=== PATIENT | female | born 1940 | race Two or more races ===

== ENCOUNTER 2017-09-19 09:20 | Inpatient (IN) | payer OTHER, MEDICAID ==
[~2017-09-19] VITALS: Ht 157.5 cm; Wt 81.6 kg
[2017-09-19 09:50] LABS: Basophils # (auto) 0 uL; Basophils % (auto) 0.4 % (0.0-2.0); Eosinophils # (auto) 0 uL; Eosinophils % (auto) 0.1 % (0.0-7.0); Hematocrit 44.1 % (36.0-46.0); Hemoglobin 14.6 g/dL (12.2-16.2); Lymphocytes # (auto) 0.6 uL; Lymphocytes % (auto) 5.3 % (10.0-50.0); Mean Corpuscular Hemoglobin 30.1 pg (28.0-32.0); Mean Corpuscular Hgb Conc. 33.1 g/dL (32.0-36.0); Mean Corpuscular Volume 90.8 fL (80.0-100.0); Monocytes # (auto) 0.9 uL; Monocytes % (auto) 7.7 % (0.0-12.0); Neutrophils # (auto) 10.1 uL; Neutrophils % (auto) 86.5 % (37.0-80.0); Platelet Count (auto) 254 10^3/uL (140-450); Red Blood Cells 4.85 10^6/uL (4.0-5.20); White Blood Cell 11.7 10^3/uL (4.4-10.8)
[2017-09-19 10:07] LABS: Albumin 3.1 g/dL (3.4-5.0); Magnesium 2.2 mg/dL (1.6-2.6)
[2017-09-19] MEDS ORDERED: SODIUM CHLORIDE 0.9% 1,000 ML IV ONE (10:14)
[2017-09-19 10:15] LABS: Bilirubin, Total 0.4 mg/dL (0.2-1.0); Total Protein 7.6 g/dL (6.4-8.2)
[2017-09-19] MEDS ORDERED: InsuLIN REG 1unit/0.01ml Soln (100units/ml) IV ONE (10:15)
[2017-09-19 11:01] LABS: Urine Bacteria FEW /hpf (None Seen); Urine Blood 2+ /uL (Negative); Urine Specific Gravity 1.014 (1.001-1.035); Urine WBC 1348 /hpf (0 - 5); Urine WBC Clumps PRESENT /hpf (None Seen)
[2017-09-19] MEDS ORDERED: ENOXAPARIN SOD 80 MG/0.8ML SYRINGE SC ONE (11:15)
[2017-09-19 12:58] LABS: INR 1.16 (0.9-1.15); Partial Thromboplastin Time 27.8 sec (22.64-33.71); Prothrombin Time 12.7 sec (9.37-12.3)
[2017-09-19] MEDS ORDERED: DEXTROSE (50%) 50ML SYRG IV PRN (13:00)
[2017-09-19] MEDS ORDERED: DOCUSATE SOD 100 MG CAP PO PRN (13:15)
[2017-09-19] MEDS ORDERED: ONDANSETRON HCL 4 MG/2 ML VIAL IV PRN (13:15)
[2017-09-19] MEDS ORDERED: cefTRIAXone 1GM/10ml IVPUSH 10 ML IV ONE (13:15)
[2017-09-19] MEDS ORDERED: IBUPROFEN 600 MG TAB PO PRN (13:15)
[2017-09-19] MEDS ORDERED: ASPirin-EC 81 mg tab PO ONE (13:15)
[2017-09-19] MEDS ORDERED: ACETAMINOPHEN 325 MG TAB PO PRN (13:15)
[2017-09-19] MEDS: SODIUM CHLOR 0.9% PF (SALINE LOCK) 10ML VIAL IV SCH ×2 (13:21→21:58)
[2017-09-19] MEDS: ENOXAPARIN SOD 30 MG/0.3 ML SYRINGE SC SCH (13:45)
[2017-09-19] MEDS: FAMOTIDINE 20 MG TAB PO SCH (14:17)
[2017-09-19] MEDS: GABAPENTIN 300 MG CAP PO SCH ×2 (14:17→21:58)
[2017-09-19] MEDS: HYDROcodone-ACET 5/325MG TAB PO PRN ×2 (15:58→23:16)
[2017-09-19] MEDS: InsuLIN REG 1unit/0.01ml Soln (100units/ml) SC SCH ×2 (16:54→22:23)
[2017-09-19] MEDS: NovoloG Insulin 1unit/0.01ml Soln (100units/ml) SC SCH (16:54)
[2017-09-19] MEDS: ACCU-CHEK COMFORT CURVE STRIP VI SCH ×2 (16:54→22:24)
[2017-09-19] MEDS: Boost Glucose Control 8 Ounces PO SCH (18:35)
[2017-09-19] MEDS: MORPHINE SULFATE 4 MG/ML SYR/VIAL IV PRN (18:40)
[2017-09-19 20:00] VITALS: BP 106/62
[2017-09-19 21:19] VITALS: BP 106/62
[2017-09-19] MEDS: ATORVASTATIN 20 MG TAB PO SCH (21:58)
[2017-09-19] MEDS ORDERED: FAMOTIDINE 20 MG TAB PO SCH (22:00)
[2017-09-19] MEDS: INSULIN LANTUS (GLARGINE) 1 /0.01ml (100units/ml) SC SCH (22:23)
[2017-09-20] VITALS (7 sets, daily range): BP systolic 108–126; BP diastolic 60–80
[2017-09-20] MEDS: TEMAZEPAM 15 MG CAP PO PRN ×2 (01:39→21:34)
[2017-09-20] MEDS ORDERED: VANCOMYCIN PER PHARMACY 0 MG IV SCH (02:15)
[2017-09-20] MEDS ORDERED: VANCOMYCIN 1GM/250ML 250 ML IV ONE ×2 (02:30→02:39)
[2017-09-20] MEDS: GABAPENTIN 300 MG CAP PO SCH ×3 (05:53→21:32)
[2017-09-20] MEDS: SODIUM CHLOR 0.9% PF (SALINE LOCK) 10ML VIAL IV SCH ×3 (05:53→21:31)
[2017-09-20] MEDS: ACCU-CHEK COMFORT CURVE STRIP VI SCH ×4 (05:54→21:32)
[2017-09-20] MEDS: InsuLIN REG 1unit/0.01ml Soln (100units/ml) SC SCH ×4 (06:06→21:33)
[2017-09-20] MEDS: NovoloG Insulin 1unit/0.01ml Soln (100units/ml) SC SCH ×3 (06:06→16:53)
[2017-09-20 06:41] LABS: Basophils # (auto) 0 uL; Basophils % (auto) 0.4 % (0.0-2.0); Eosinophils # (auto) 0.1 uL; Hematocrit 42.5 % (36.0-46.0); Hemoglobin 14.1 g/dL (12.2-16.2); Lymphocytes # (auto) 1.8 uL; Lymphocytes % (auto) 18.9 % (10.0-50.0); Mean Corpuscular Hemoglobin 30.6 pg (28.0-32.0); Mean Corpuscular Hgb Conc. 33.1 g/dL (32.0-36.0); Mean Corpuscular Volume 92.4 fL (80.0-100.0); Monocytes # (auto) 1.1 uL; Monocytes % (auto) 11.6 % (0.0-12.0); Neutrophils # (auto) 6.6 uL; Neutrophils % (auto) 68.1 % (37.0-80.0); Platelet Count (auto) 217 10^3/uL (140-450); Red Blood Cells 4.59 10^6/uL (4.0-5.20); Red Cell Distribution Width 14.3 % (11.8-14.3); White Blood Cell 9.7 10^3/uL (4.4-10.8)
[2017-09-20 07:09] LABS: Albumin 2.6 g/dL (3.4-5.0); BUN/Creatinine Ratio 14.6; Bilirubin, Total 0.2 mg/dL (0.2-1.0); Calcium 8.6 mg/dL (8.5-10.1); Potassium 3.9 mmol/L (3.5-5.1); Total Protein 7.3 g/dL (6.4-8.2)
[2017-09-20] MEDS: Boost Glucose Control 8 Ounces PO SCH ×3 (08:58→18:25)
[2017-09-20] MEDS: cefTRIAXone 1GM/10ml IVPUSH 10 ML IV SCH (09:59)
[2017-09-20] MEDS: ENOXAPARIN SOD 30 MG/0.3 ML SYRINGE SC SCH (10:00)
[2017-09-20] MEDS: ASPirin-EC 81 mg tab PO SCH (10:00)
[2017-09-20] MEDS: VICTOZA 1.8 MG SC SCH (10:00)
[2017-09-20] MEDS ORDERED: ENOXAPARIN SOD 40 MG/0.4 ML SYRINGE SC SCH (10:00)
[2017-09-20] MEDS: FAMOTIDINE 20 MG TAB PO SCH (10:00)
[2017-09-20] MEDS: MULTIPLE VITAMIN TAB PO SCH (10:03)
[2017-09-20] MEDS ORDERED: INSLANTI SC (10:57)
[2017-09-20] MEDS ORDERED: OXYB5TAB62 PO (10:57)
[2017-09-20] MEDS ORDERED: CLOP75TA41 PO (10:57)
[2017-09-20] MEDS ORDERED: IBUP800T24 PO (10:57)
[2017-09-20] MEDS ORDERED: LIRA18IN2 SUBCUT (10:59)
[2017-09-20] MEDS ORDERED: GABA300C10 PO (10:59)
[2017-09-20] MEDS ORDERED: CHOL20007 PO (10:59)
[2017-09-20] MEDS ORDERED: ISOS60TA24 PO (10:59)
[2017-09-20] MEDS ORDERED: POTA-167 PO (10:59)
[2017-09-20] MEDS ORDERED: FENO1TAB42 PO (10:59)
[2017-09-20 11:32] LABS: Folate (Folic Acid) 12.53 ng/mL (5.38-24)
[2017-09-20] MEDS ORDERED: LEVOFLOXACIN 500MG 100 ML IV SCH ×2 (16:30)
[2017-09-20] MEDS: ATORVASTATIN 20 MG TAB PO SCH (21:31)
[2017-09-20] MEDS: INSULIN LANTUS (GLARGINE) 1 /0.01ml (100units/ml) SC SCH (21:32)
[2017-09-21 05:30] VITALS: BP 108/53
[2017-09-21] MEDS: NovoloG Insulin 1unit/0.01ml Soln (100units/ml) SC SCH ×3 (06:26→17:00)
[2017-09-21] MEDS: ACCU-CHEK COMFORT CURVE STRIP VI SCH ×3 (06:26→17:27)
[2017-09-21] MEDS: InsuLIN REG 1unit/0.01ml Soln (100units/ml) SC SCH ×3 (06:26→17:00)
[2017-09-21] MEDS: SODIUM CHLOR 0.9% PF (SALINE LOCK) 10ML VIAL IV SCH ×2 (06:26→17:16)
[2017-09-21 07:36] LABS: Basophils # (auto) 0 uL; Basophils % (auto) 0.5 % (0.0-2.0); Eosinophils # (auto) 0.1 uL; Eosinophils % (auto) 1.2 % (0.0-7.0); Hematocrit 36.8 % (36.0-46.0); Hemoglobin 12.5 g/dL (12.2-16.2); Lymphocytes # (auto) 1.6 uL; Lymphocytes % (auto) 22.5 % (10.0-50.0); Mean Corpuscular Hemoglobin 30.6 pg (28.0-32.0); Mean Corpuscular Hgb Conc. 33.9 g/dL (32.0-36.0); Monocytes # (auto) 0.8 uL; Monocytes % (auto) 11.4 % (0.0-12.0); Neutrophils # (auto) 4.7 uL; Neutrophils % (auto) 64.4 % (37.0-80.0); Platelet Count (auto) 225 10^3/uL (140-450); Red Blood Cells 4.09 10^6/uL (4.0-5.20); White Blood Cell 7.3 10^3/uL (4.4-10.8)
[2017-09-21 07:50] LABS: Albumin 2.3 g/dL (3.4-5.0); BUN/Creatinine Ratio 17.9; Bilirubin, Total 0.2 mg/dL (0.2-1.0); Calcium 8.4 mg/dL (8.5-10.1); Potassium 3.8 mmol/L (3.5-5.1); Total Protein 6.7 g/dL (6.4-8.2)
[2017-09-21] MEDS: Boost Glucose Control 8 Ounces PO SCH ×3 (08:00→18:00)
[2017-09-21 09:08] VITALS: BP 109/64
[2017-09-21] MEDS: cefTRIAXone 1GM/10ml IVPUSH 10 ML IV SCH (09:12)
[2017-09-21] MEDS: MORPHINE SULFATE 4 MG/ML SYR/VIAL IV PRN ×2 (09:12→17:06)
[2017-09-21] MEDS: VICTOZA 1.8 MG SC SCH (10:00)
[2017-09-21] MEDS ORDERED: VANCOMYCIN 1,250 MG in D5W 5% 250 ML IV SCH (10:00)
[2017-09-21] MEDS: ASPirin-EC 81 mg tab PO SCH (10:46)
[2017-09-21] MEDS: MULTIPLE VITAMIN TAB PO SCH (10:46)
[2017-09-21] MEDS: GABAPENTIN 300 MG CAP PO SCH (10:46)
[2017-09-21] MEDS: FAMOTIDINE 20 MG TAB PO SCH (10:46)
[2017-09-21] MEDS: ENOXAPARIN SOD 30 MG/0.3 ML SYRINGE SC SCH (10:47)
[2017-09-21] MEDS ORDERED: LEVOFLOXACIN 250MG 50 ML IV SCH (11:00)
[2017-09-21 15:39] VITALS: BP 109/64
== END 2017-09-21 20:17 | DRG 871 ==
LOC: ER 09:20 → EDBD 09:20 → OVERFLOW 09:21 → CENTRAL 18:03
PROVIDERS: ADMIT Internal Medicine; ATTEND Internal Medicine
DX: A41.51 Sepsis due to Escherichia coli [E. coli] (principal); G92 Toxic encephalopathy; E44.0 Moderate protein-calorie malnutrition; E10.21 Type 1 diabetes mellitus with diabetic nephropathy; M62.82 Rhabdomyolysis; N39.0 Urinary tract infection, site not specified; E86.0 Dehydration; W18.39XA Other fall on same level, initial encounter; F02.80 Dementia in other diseases classified elsewhere, unspecified severity, without behavioral disturbance, psychotic disturbance, mood disturbance, and anxiety; G30.9 Alzheimer's disease, unspecified; G89.4 Chronic pain syndrome; I12.9 Hypertensive chronic kidney disease with stage 1 through stage 4 chronic kidney disease, or unspecified chronic kidney disease; N18.3 Chronic kidney disease, stage 3 (moderate); R29.6 Repeated falls; R26.89 Other abnormalities of gait and mobility; R74.8 Abnormal levels of other serum enzymes; K59.00 Constipation, unspecified; G96.8 Other specified disorders of central nervous system; M48.061 Spinal stenosis, lumbar region without neurogenic claudication; M51.26 Other intervertebral disc displacement, lumbar region; E10.22 Type 1 diabetes mellitus with diabetic chronic kidney disease; G40.909 Epilepsy, unspecified, not intractable, without status epilepticus; I70.0 Atherosclerosis of aorta; Y93.89 Activity, other specified; Z68.32 Body mass index [BMI] 32.0-32.9, adult; Y92.091 Bathroom in other non-institutional residence as the place of occurrence of the external cause; Z79.4 Long term (current) use of insulin; Y99.8 Other external cause status
CPT/HCPCS: 36415; 70450; 70551; 71045; 72128; 72131; 73502; 80053; 81001; 82550; 82607; 82746; 82962; 83036; 83605; 83735; 83880; 84443; 84484; 85025; 85610; 85730; 87040; 87077; 87086; 87088; 87186; 92610; 93005; 93306; 93886; 95819; 96372; 96374; 96375; 97163; 99291; J1815; J1956; J7060

== ENCOUNTER 2018-01-25 13:51 | Emergency (ER) | payer OTHER, MEDICAID ==
[~2018-01-25] VITALS: Ht 152.4 cm; Wt 71.2 kg
[~2018-01-25 13:51] MED LIST: CHOL20007 PO; CLOP75TA41 PO; FENO1TAB42 PO; GABA300C10 PO; IBUP800T24 PO; INSLANTI SC; ISOS60TA24 PO; LIRA18IN2 SUBCUT; OXYB5TAB62 PO; POTA-167 PO
[2018-01-25 14:05] VITALS: BP 115/52
[2018-01-25 16:31] LABS: Basophils # (auto) 0 uL; Basophils % (auto) 0.5 % (0.0-2.0); Eosinophils # (auto) 0.2 uL; Hematocrit 41.3 % (36.0-46.0); Lymphocytes # (auto) 2.4 uL; Lymphocytes % (auto) 36.9 % (10.0-50.0); Mean Corpuscular Hemoglobin 30.9 pg (28.0-32.0); Monocytes # (auto) 0.5 uL; Monocytes % (auto) 6.9 % (0.0-12.0); Neutrophils # (auto) 3.5 uL; Neutrophils % (auto) 52.7 % (37.0-80.0); Nucleated Red Blood Cells % 0.1 %; Platelet Count (auto) 258 10^3/uL (140-450); Red Blood Cells 4.54 10^6/uL (4.0-5.20); Red Cell Distribution Width 14.1 % (11.8-14.3); White Blood Cell 6.5 10^3/uL (4.4-10.8)
[2018-01-25 16:46] LABS: Anion Gap 8 (5-15); BUN/Creatinine Ratio 13.2; Blood Urea Nitrogen 15 mg/dL (7-18); Calcium 9.1 mg/dL (8.5-10.1); Carbon Dioxide 24 mmol/L (21-32); Chloride 103 mmol/L (98-107); GFR African American 60 mL/min; GFR Non-African American 49 mL/min; Glucose 182 mg/dL (74-106); Potassium 3.9 mmol/L (3.5-5.1); Sodium 135 mmol/L (136-145)
[2018-01-25 16:49] LABS: INR 1.05 (0.9-1.15); Partial Thromboplastin Time 29.9 sec (23.78-33.04); Prothrombin Time 11.2 sec (9.27-12.13)
== END 2018-01-25 17:33 | disposition home or self-care (01) ==
LOC: ER 13:51
DX: M79.89 Other specified soft tissue disorders (principal); R53.1 Weakness; E11.9 Type 2 diabetes mellitus without complications; K21.9 Gastro-esophageal reflux disease without esophagitis; I10 Essential (primary) hypertension; E78.5 Hyperlipidemia, unspecified; Z87.442 Personal history of urinary calculi; Z90.710 Acquired absence of both cervix and uterus; Z88.1 Allergy status to other antibiotic agents; Z88.8 Allergy status to other drugs, medicaments and biological substances; Z79.899 Other long term (current) drug therapy; Z90.49 Acquired absence of other specified parts of digestive tract
CPT/HCPCS: 36415; 80048; 84484; 85025; 85610; 85730

== ENCOUNTER 2018-02-24 12:38 | Inpatient (IN) | payer OTHER, MEDICAID ==
[~2018-02-24] VITALS: Ht 152.4 cm; Wt 76.0 kg
[2018-02-24 13:14] LABS: Basophils # (auto) 0 uL; Basophils % (auto) 0.7 % (0.0-2.0); Eosinophils # (auto) 0.1 uL; Eosinophils % (auto) 1.9 % (0.0-7.0); Hematocrit 41.3 % (36.0-46.0); Hemoglobin 13.6 g/dL (12.2-16.2); Lymphocytes # (auto) 2.6 uL; Mean Corpuscular Hemoglobin 29.9 pg (28.0-32.0); Mean Corpuscular Hgb Conc. 32.8 g/dL (32.0-36.0); Mean Corpuscular Volume 90.9 fL (80.0-100.0); Monocytes # (auto) 0.4 uL; Neutrophils % (auto) 48.4 % (37.0-80.0); Nucleated Red Blood Cells % 0.1 %; Platelet Count (auto) 285 10^3/uL (140-450); Red Blood Cells 4.54 10^6/uL (4.0-5.20); Red Cell Distribution Width 14.1 % (11.8-14.3); White Blood Cell 6.1 10^3/uL (4.4-10.8)
[2018-02-24 13:28] LABS: INR 1.07 (0.9-1.15); Partial Thromboplastin Time 27.6 sec (23.78-33.04); Prothrombin Time 11.4 sec (9.27-12.13)
[2018-02-24 13:42] LABS: Albumin 3.2 g/dL (3.4-5.0); BUN/Creatinine Ratio 17.5; Bilirubin, Total 0.2 mg/dL (0.2-1.0); Calcium 9.1 mg/dL (8.5-10.1); Potassium 4.4 mmol/L (3.5-5.1); Total Protein 7.3 g/dL (6.4-8.2)
[2018-02-24] MEDS ORDERED: ENOXAPARIN SOD 80 MG/0.8ML SYRINGE SC ONE (15:00)
[2018-02-24] MEDS ORDERED: ACETAMINOPHEN 500 MG TAB PO PRN (15:15)
[2018-02-24] MEDS ORDERED: TEMAZEPAM 15 MG CAP PO PRN (15:15)
[2018-02-24] MEDS ORDERED: PROMETHAZINE HCL 25 MG/ML 1ML IV PRN (15:15)
[2018-02-24] MEDS ORDERED: NITROGLYCERIN 0.4 MG SL TAB SL PRN (15:15)
[2018-02-24] MEDS ORDERED: DEXTROSE (50%) 50ML SYRG IV PRN (15:15)
[2018-02-24] MEDS ORDERED: MORPHINE SULF INJ 2 MG/ML SYRINGE 1ML IV PRN ×2 (15:15)
[2018-02-24] MEDS ORDERED: LORazepam 0.5 MG TAB PO PRN (15:15)
[2018-02-24 15:39] LABS: Urine Bacteria NONE SEEN /hpf (None Seen); Urine Blood Negative /uL (Negative); Urine Specific Gravity 1.016 (1.001-1.035); Urine WBC 6 /hpf (0 - 5)
[2018-02-24] MEDS: ACCU-CHEK COMFORT CURVE STRIP VI SCH ×2 (16:07→20:02)
[2018-02-24] MEDS: InsuLIN REG 1unit/0.01ml Soln (100units/ml) SC SCH ×2 (16:10→20:08)
[2018-02-24] MEDS ORDERED: WARFARIN SODIUM 5 MG TAB PO ONE (17:00)
[2018-02-24 18:09] VITALS: BP 121/63
[2018-02-24 20:00] VITALS: BP 104/62
[2018-02-24 21:51] VITALS: BP 104/62
[2018-02-24] MEDS ORDERED: APIXABAN 5 MG TAB PO SCH (22:00)
[2018-02-24] MEDS: INSULIN LANTUS (GLARGINE) 1 /0.01ml (100units/ml) SC SCH (22:00)
[2018-02-24] MEDS: OXYBUTYNIN CHL 5 MG TAB PO SCH (22:31)
[2018-02-24] MEDS: GABAPENTIN 100 MG CAP PO SCH (22:31)
[2018-02-24] MEDS: HYDROcodone-ACET 5/325MG TAB PO PRN (22:41)
[2018-02-25] MEDS: ACCU-CHEK COMFORT CURVE STRIP VI SCH ×6 (00:05→20:21)
[2018-02-25] MEDS: InsuLIN REG 1unit/0.01ml Soln (100units/ml) SC SCH ×6 (00:06→20:21)
[2018-02-25 04:47] VITALS: BP 98/54
[2018-02-25] MEDS: ENOXAPARIN SOD 80 MG/0.8ML SYRINGE SC SCH ×2 (06:28→17:07)
[2018-02-25] MEDS: GABAPENTIN 100 MG CAP PO SCH ×3 (06:28→21:39)
[2018-02-25 06:29] LABS: Hematocrit 40.8 % (36.0-46.0); Hemoglobin 13.3 g/dL (12.2-16.2); Mean Corpuscular Hemoglobin 29.9 pg (28.0-32.0); Mean Corpuscular Hgb Conc. 32.6 g/dL (32.0-36.0); Mean Corpuscular Volume 91.9 fL (80.0-100.0); Platelet Count (auto) 279 10^3/uL (140-450); Red Blood Cells 4.45 10^6/uL (4.0-5.20); Red Cell Distribution Width 14.3 % (11.8-14.3); White Blood Cell 6.4 10^3/uL (4.4-10.8)
[2018-02-25 06:31] LABS: INR 1.06 (0.9-1.15); Partial Thromboplastin Time 24.2 sec (23.78-33.04); Prothrombin Time 11.3 sec (9.27-12.13)
[2018-02-25 06:35] LABS: Cholesterol 130 mg/dL (< 200); HDL Cholesterol 38 mg/dL (40-59); LDL Cholesterol 71 mg/dL (< 100); Triglycerides 178 mg/dL (< 150)
[2018-02-25 07:02] LABS: Band Neutrophils % (manual) 0; Basophils % (manual) 0 (0.0-2.0); Blast Cells 0; Metamyelocytes % 0; Myelocytes % 0; Promyelocytes % 0; Reactive Lymphocytes 0
[2018-02-25 08:00] VITALS: BP 95/60
[2018-02-25 09:06] LABS: Eosinophils % (manual) 4 (0-7); Lymphocytes % (manual) 59 (10.0-50.0); Monocytes % (manual) 5 (0-12)
[2018-02-25] MEDS: Fenofibrate 145MG TAB PO SCH (09:41)
[2018-02-25] MEDS: ISOSORBIDE MONONITRATE 60 MG TAB PO SCH (09:42)
[2018-02-25] MEDS: LIRAGLUTIDE 1.8 MG SUBCUT SCH (09:42)
[2018-02-25] MEDS: OXYBUTYNIN CHL 5 MG TAB PO SCH ×2 (09:43→21:39)
[2018-02-25] MEDS: INSULIN LANTUS (GLARGINE) 1 /0.01ml (100units/ml) SC SCH ×2 (09:43→21:40)
[2018-02-25] MEDS: PANTOPRAZOLE 40 MG TAB PO SCH (09:43)
[2018-02-25] MEDS ORDERED: CLOPIDOGREL BISULFATE 75 MG TAB PO SCH (10:00)
[2018-02-25] MEDS ORDERED: OXYBUTYNIN CHLORIDE 5 MG PO SCH (10:00)
[2018-02-25] MEDS ORDERED: LABETALOL HCL 5 MG/ML ML 20ML VIAL IV PRN (11:45)
[2018-02-25] MEDS ORDERED: ASPirin 81 mg TAB PO ONE (11:45)
[2018-02-25] MEDS ORDERED: LORazepam 2MG/ML-1ML VIAL IV PRN (15:00)
[2018-02-25 16:30] VITALS: BP 119/78
[2018-02-25] MEDS ORDERED: WARFARIN SODIUM 5 MG TAB PO ONE (17:00)
[2018-02-25 20:00] VITALS: BP 114/71
[2018-02-25] MEDS: ATORVASTATIN 20 MG TAB PO SCH (21:39)
[2018-02-25 21:47] VITALS: BP 114/71
[2018-02-25 22:06] LABS: Urine Bacteria NONE SEEN /hpf (None Seen); Urine Blood Negative /uL (Negative); Urine Specific Gravity 1.007 (1.001-1.035); Urine WBC 7 /hpf (0 - 5)
[2018-02-26] MEDS: ACCU-CHEK COMFORT CURVE STRIP VI SCH ×6 (00:26→21:25)
[2018-02-26] MEDS: InsuLIN REG 1unit/0.01ml Soln (100units/ml) SC SCH ×5 (00:33→17:00)
[2018-02-26 04:50] VITALS: BP 95/51
[2018-02-26] MEDS: GABAPENTIN 100 MG CAP PO SCH ×3 (05:57→21:19)
[2018-02-26] MEDS: ENOXAPARIN SOD 80 MG/0.8ML SYRINGE SC SCH (05:58)
[2018-02-26 07:23] LABS: INR 2.06 (0.9-1.15); Prothrombin Time 21.2 sec (9.27-12.13)
[2018-02-26 08:00] VITALS: BP 111/58
[2018-02-26 09:00] VITALS: BP 111/58
[2018-02-26 09:01] LABS: Folate (Folic Acid) 21.44 ng/mL (5.38-24)
[2018-02-26] MEDS: PANTOPRAZOLE 40 MG TAB PO SCH (09:50)
[2018-02-26] MEDS: OXYBUTYNIN CHL 5 MG TAB PO SCH ×2 (09:51→21:20)
[2018-02-26] MEDS: LIRAGLUTIDE 1.8 MG SUBCUT SCH (09:52)
[2018-02-26] MEDS: INSULIN LANTUS (GLARGINE) 1 /0.01ml (100units/ml) SC SCH ×2 (09:52→21:26)
[2018-02-26] MEDS: ISOSORBIDE MONONITRATE 60 MG TAB PO SCH (09:53)
[2018-02-26] MEDS: Fenofibrate 145MG TAB PO SCH (09:53)
[2018-02-26] MEDS ORDERED: ASPirin 81 mg TAB PO SCH (10:00)
[2018-02-26 10:58] LABS: Basophils # (auto) 0 uL; Basophils % (auto) 0.4 % (0.0-2.0); Eosinophils # (auto) 0.2 uL; Eosinophils % (auto) 3.9 % (0.0-7.0); Hematocrit 42.5 % (36.0-46.0); Hemoglobin 13.9 g/dL (12.2-16.2); Lymphocytes # (auto) 2.5 uL; Mean Corpuscular Hemoglobin 29.9 pg (28.0-32.0); Mean Corpuscular Hgb Conc. 32.6 g/dL (32.0-36.0); Mean Corpuscular Volume 91.5 fL (80.0-100.0); Monocytes # (auto) 0.5 uL; Neutrophils # (auto) 1.9 uL; Neutrophils % (auto) 36.7 % (37.0-80.0); Nucleated Red Blood Cells % 0.1 %; Platelet Count (auto) 288 10^3/uL (140-450); Red Blood Cells 4.64 10^6/uL (4.0-5.20); Red Cell Distribution Width 14.4 % (11.8-14.3)
[2018-02-26 11:14] LABS: BUN/Creatinine Ratio 16.7; Calcium 9.4 mg/dL (8.5-10.1); Potassium 4.2 mmol/L (3.5-5.1)
[2018-02-26] MEDS: HYDROcodone-ACET 5/325MG TAB PO PRN ×2 (11:34→22:02)
[2018-02-26 13:00] VITALS: BP 117/59
[2018-02-26] MEDS ORDERED: DEXTROSE (50%) 50ML SYRG IV PRN (13:00)
[2018-02-26] MEDS ORDERED: LIDOCAINE 2%HCL (LOCAL ANESTH.) INJ 10ml MDV ONE (13:24)
[2018-02-26] MEDS ORDERED: IOHEXOL 350 MG/ML 100ML IJ ONE (13:24)
[2018-02-26] MEDS ORDERED: fentaNYL CITRATE 100 MCG/2 ML VL ONE (13:39)
[2018-02-26] MEDS ORDERED: MIDAZOLAM HCL 1MG/1ML-2 ML VIAL ONE (13:40)
[2018-02-26 16:33] LABS: Free T3 2.72 pg/mL (2.3-4.2); Free T4 (Free Thyroxine) 1.23 ng/dL (0.89-1.76)
[2018-02-26] MEDS ORDERED: WARFARIN SODIUM 2 MG TAB PO ONE ×3 (17:00)
[2018-02-26 17:57] VITALS: BP 105/57
[2018-02-26] MEDS: ATORVASTATIN 20 MG TAB PO SCH (21:20)
[2018-02-26 21:30] VITALS: BP 98/41
[2018-02-26] MEDS ORDERED: InsuLIN REG 1unit/0.01ml Soln (100units/ml) SC SCH (22:00)
[2018-02-26] MEDS ORDERED: APIXABAN 5 MG TAB PO SCH (22:00)
[2018-02-27 05:00] VITALS: BP 98/56
[2018-02-27] MEDS: GABAPENTIN 100 MG CAP PO SCH ×2 (06:00→13:06)
[2018-02-27] MEDS: InsuLIN REG 1unit/0.01ml Soln (100units/ml) SC SCH ×2 (06:13→11:30)
[2018-02-27] MEDS: ACCU-CHEK COMFORT CURVE STRIP VI SCH ×2 (06:15→13:05)
[2018-02-27 06:58] LABS: Basophils # (auto) 0 uL; Basophils % (auto) 0.6 % (0.0-2.0); Eosinophils # (auto) 0.2 uL; Eosinophils % (auto) 4.3 % (0.0-7.0); Hematocrit 41.3 % (36.0-46.0); Hemoglobin 13.9 g/dL (12.2-16.2); Lymphocytes # (auto) 2.3 uL; Lymphocytes % (auto) 41.2 % (10.0-50.0); Mean Corpuscular Hemoglobin 30.8 pg (28.0-32.0); Mean Corpuscular Hgb Conc. 33.7 g/dL (32.0-36.0); Mean Corpuscular Volume 91.4 fL (80.0-100.0); Monocytes # (auto) 0.6 uL; Monocytes % (auto) 10.4 % (0.0-12.0); Neutrophils # (auto) 2.4 uL; Neutrophils % (auto) 43.5 % (37.0-80.0); Nucleated Red Blood Cells % 0.1 %; Platelet Count (auto) 277 10^3/uL (140-450); Red Blood Cells 4.51 10^6/uL (4.0-5.20); Red Cell Distribution Width 14.3 % (11.8-14.3); White Blood Cell 5.5 10^3/uL (4.4-10.8)
[2018-02-27 07:08] LABS: INR 3.45 (0.9-1.15); Prothrombin Time 34.4 sec (9.27-12.13)
[2018-02-27 07:28] LABS: Albumin 3.1 g/dL (3.4-5.0); Bilirubin, Total 0.3 mg/dL (0.2-1.0); Potassium 4.1 mmol/L (3.5-5.1); Total Protein 6.9 g/dL (6.4-8.2)
[2018-02-27 07:45] VITALS: BP 103/62
[2018-02-27] MEDS: INSULIN LANTUS (GLARGINE) 1 /0.01ml (100units/ml) SC SCH (10:00)
[2018-02-27] MEDS: LIRAGLUTIDE 1.8 MG SUBCUT SCH (10:00)
[2018-02-27] MEDS: HYDROmorphone HCL 2 MG/ML VL IV PRN ×3 (10:01→16:30)
[2018-02-27 12:18] VITALS: BP 157/67
[2018-02-27] MEDS: Fenofibrate 145MG TAB PO SCH (13:03)
[2018-02-27] MEDS: PANTOPRAZOLE 40 MG TAB PO SCH (13:04)
[2018-02-27] MEDS: OXYBUTYNIN CHL 5 MG TAB PO SCH (13:04)
[2018-02-27] MEDS: HYDROcodone-ACET 5/325MG TAB PO PRN (13:14)
[2018-02-27 14:04] VITALS: BP 111/58
[2018-02-27 16:04] VITALS: BP 111/58
[2018-03-05] MEDS ORDERED: APIXABAN 5 MG TAB PO SCH (22:00)
== END 2018-02-27 16:30 | disposition home health service (06) | DRG 254 ==
LOC: EDBD 12:38 → ER 12:41 → TELE 12:42 → TELE-EAST 16:44
PROVIDERS: ADMIT Internal Medicine; ATTEND Internal Medicine
PROC: 06H03DZ Insertion of Intraluminal Device into Inferior Vena Cava, Percutaneous Approach (ICD-10-PCS; principal; 2018-02-26)
PROC: B5191ZA Fluoroscopy of Inferior Vena Cava using Low Osmolar Contrast, Guidance (ICD-10-PCS; 2018-02-26)
PROC: B51V1ZZ Fluoroscopy of Other Veins using Low Osmolar Contrast (ICD-10-PCS; 2018-02-26)
DX: I82.491 Acute embolism and thrombosis of other specified deep vein of right lower extremity (principal); N18.3 Chronic kidney disease, stage 3 (moderate); I12.9 Hypertensive chronic kidney disease with stage 1 through stage 4 chronic kidney disease, or unspecified chronic kidney disease; K21.9 Gastro-esophageal reflux disease without esophagitis; E03.9 Hypothyroidism, unspecified; G89.29 Other chronic pain; E11.22 Type 2 diabetes mellitus with diabetic chronic kidney disease; I65.22 Occlusion and stenosis of left carotid artery; F41.9 Anxiety disorder, unspecified; M54.5 Low back pain; Z90.710 Acquired absence of both cervix and uterus; Z86.718 Personal history of other venous thrombosis and embolism; Z86.711 Personal history of pulmonary embolism; Z79.01 Long term (current) use of anticoagulants; Z82.49 Family history of ischemic heart disease and other diseases of the circulatory system; Z87.442 Personal history of urinary calculi; Z88.8 Allergy status to other drugs, medicaments and biological substances; Z88.1 Allergy status to other antibiotic agents; Z79.4 Long term (current) use of insulin; Z79.899 Other long term (current) drug therapy; Z90.89 Acquired absence of other organs; Z98.42 Cataract extraction status, left eye; Z98.41 Cataract extraction status, right eye
CPT/HCPCS: 36415; 37191; 37619; 70450; 70551; 71045; 76937; 80048; 80053; 80061; 81001; 82550; 82607; 82746; 82962; 83036; 83735; 84439; 84443; 84481; 85007; 85025; 85027; 85610; 85613; 85652; 85670; 85705; 85730; 85732; 93886; 93970; 94761; 96372; 97110; 97116; 97530; 99152; A6257; J1815; J2001; J2250

== ENCOUNTER 2018-03-22 12:41 | Emergency (ER) | payer MEDICAID, OTHER ==
[~2018-03-22] VITALS: Ht 152.4 cm; Wt 68.0 kg
[~2018-03-22 12:41] MED LIST changes: -CLOP75TA41 PO; -IBUP800T24 PO; -ISOS60TA24 PO; -POTA-167 PO
[2018-03-22 14:28] LABS: INR 2.58 (0.9-1.15); Partial Thromboplastin Time 36.6 sec (23.78-33.04); Prothrombin Time 26.2 sec (9.27-12.13)
[2018-03-22] MEDS ORDERED: ENOXAPARIN SOD 100 MG/1 ML SYRINGE SC ONE (15:15)
[2018-03-22 15:43] VITALS: BP 122/52
== END 2018-03-22 16:27 | disposition home or self-care (01) ==
LOC: ER 12:44
DX: I82.401 Acute embolism and thrombosis of unspecified deep veins of right lower extremity (principal); E11.9 Type 2 diabetes mellitus without complications; K21.9 Gastro-esophageal reflux disease without esophagitis; I10 Essential (primary) hypertension; I25.2 Old myocardial infarction; Z90.49 Acquired absence of other specified parts of digestive tract; Z90.710 Acquired absence of both cervix and uterus; Z87.442 Personal history of urinary calculi; Z86.711 Personal history of pulmonary embolism; Z88.1 Allergy status to other antibiotic agents; Z88.6 Allergy status to analgesic agent
CPT/HCPCS: 36415; 85610; 85730; 93005; 93971; 96372; 99285; J1650

== ENCOUNTER 2018-04-11 10:12 | Emergency (ER) | payer OTHER, MEDICAID ==
[~2018-04-11] VITALS: Ht 152.4 cm; Wt 70.3 kg
[~2018-04-11 10:12] MED LIST changes: +OXYB5TAB24 PO; -OXYB5TAB62 PO
[2018-04-11 10:49] VITALS: BP 103/36
== END 2018-04-11 12:16 | disposition home or self-care (01) ==
LOC: ER 10:13
DX: S46.811A Strain of other muscles, fascia and tendons at shoulder and upper arm level, right arm, initial encounter (principal); E11.9 Type 2 diabetes mellitus without complications; K21.9 Gastro-esophageal reflux disease without esophagitis; I10 Essential (primary) hypertension; I25.2 Old myocardial infarction; Z88.1 Allergy status to other antibiotic agents; Z88.8 Allergy status to other drugs, medicaments and biological substances; Z79.899 Other long term (current) drug therapy; Z87.442 Personal history of urinary calculi; Z90.49 Acquired absence of other specified parts of digestive tract; Z90.710 Acquired absence of both cervix and uterus; Z86.711 Personal history of pulmonary embolism; X58.XXXA Exposure to other specified factors, initial encounter; Y93.89 Activity, other specified; Y99.8 Other external cause status; Y92.89 Other specified places as the place of occurrence of the external cause
CPT/HCPCS: 93005; 93971

== ENCOUNTER 2019-01-26 11:20 | Emergency (ER) | payer OTHER ==
[~2019-01-26] VITALS: Ht 152.4 cm; Wt 72.6 kg
[~2019-01-26 11:20] MED LIST changes: +BACL10TA PO; -CHOL20007 PO; +CYAN100056 PO; +FOLI1TAB6 PO; -GABA300C10 PO; +HYDR200T36 PO; +IBUP600T27 PO; +INSRTEST SC; +LISI2.5T47 PO; +OMEP20TA PO; -OXYB5TAB24 PO; +PRAV20TA3 PO; +WARF7.5T20 PO
[2019-01-26 13:06] LABS: Basophils # (auto) 0 uL; Basophils % (auto) 0.5 % (0.0-2.0); Eosinophils # (auto) 0.1 uL; Eosinophils % (auto) 1.9 % (0.0-7.0); Hematocrit 41.5 % (36.0-46.0); Hemoglobin 13.7 g/dL (12.2-16.2); Lymphocytes # (auto) 2.1 uL; Lymphocytes % (auto) 40.1 % (10.0-50.0); Mean Corpuscular Hemoglobin 30.5 pg (28.0-32.0); Mean Corpuscular Volume 92.4 fL (80.0-100.0); Monocytes # (auto) 0.4 uL; Monocytes % (auto) 7.4 % (0.0-12.0); Neutrophils # (auto) 2.6 uL; Neutrophils % (auto) 50.1 % (37.0-80.0); Platelet Count (auto) 248 10^3/uL (140-450); Red Blood Cells 4.48 10^6/uL (4.0-5.20); Red Cell Distribution Width 13.9 % (11.8-14.3); White Blood Cell 5.3 10^3/uL (4.4-10.8)
[2019-01-26 13:34] VITALS: BP 118/60
[2019-01-26 13:41] LABS: Alanine Aminotransferase 19 U/L (13-56); Alkaline Phosphatase 89 U/L (45-117); Aspartate Aminotransferase 18 U/L (15-37); Bilirubin, Total 0.2 mg/dL (0.2-1.0); GFR African American 58 mL/min; GFR Non-African American 48 mL/min
[2019-01-26 13:43] LABS: Urine Bacteria NONE SEEN /hpf (None Seen); Urine Blood Negative /uL (Negative); Urine Specific Gravity 1.009 (1.001-1.035); Urine WBC 1 /hpf (0 - 5)
[2019-01-26 13:43] LABS: Sodium 139 mmol/L (136-145)
[2019-01-26 13:44] LABS: Albumin 3.3 g/dL (3.4-5.0); Anion Gap 5 (5-15); BUN/Creatinine Ratio 10.3; Blood Urea Nitrogen 12 mg/dL (7-18); Carbon Dioxide 29 mmol/L (21-32); Chloride 105 mmol/L (98-107); Glucose 337 mg/dL (74-106)
[2019-01-26] MEDS ORDERED: InsuLIN REG 1unit/0.01ml Soln (100units/ml) SC ONE (14:15)
== END 2019-01-26 15:49 | disposition home or self-care (01) ==
LOC: EDBD 11:20 → ER 11:20
DX: K58.0 Irritable bowel syndrome with diarrhea (principal); E11.65 Type 2 diabetes mellitus with hyperglycemia; K21.9 Gastro-esophageal reflux disease without esophagitis; I12.9 Hypertensive chronic kidney disease with stage 1 through stage 4 chronic kidney disease, or unspecified chronic kidney disease; E11.22 Type 2 diabetes mellitus with diabetic chronic kidney disease; N18.9 Chronic kidney disease, unspecified; Z90.49 Acquired absence of other specified parts of digestive tract; Z79.4 Long term (current) use of insulin; Z90.710 Acquired absence of both cervix and uterus; Z87.442 Personal history of urinary calculi; Z86.711 Personal history of pulmonary embolism; Z86.39 Personal history of other endocrine, nutritional and metabolic disease; Z79.899 Other long term (current) drug therapy; Z88.1 Allergy status to other antibiotic agents; Z88.8 Allergy status to other drugs, medicaments and biological substances
CPT/HCPCS: 36415; 80053; 81001; 84484; 85025; 93005

== ENCOUNTER 2019-08-08 10:12 | Inpatient (IN) | payer OTHER, MEDICAID ==
[~2019-08-08] VITALS: Ht 152.4 cm; Wt 64.5 kg
[~2019-08-08 10:12] MED LIST changes: +FENO145T27 PO; -FENO1TAB42 PO
[2019-08-08] MEDS ORDERED: SODIUM CHLORIDE 0.9% 1,000 ML IV ONE (10:33)
[2019-08-08 11:08] LABS: Basophils # (auto) 0 uL; Basophils % (auto) 0.4 % (0.0-2.0); Eosinophils # (auto) 0 uL; Eosinophils % (auto) 0.7 % (0.0-7.0); Hematocrit 44.4 % (36.0-46.0); Hemoglobin 14.9 g/dL (12.2-16.2); Lymphocytes # (auto) 1.6 uL; Lymphocytes % (auto) 26.4 % (10.0-50.0); Mean Corpuscular Hemoglobin 31.6 pg (28.0-32.0); Mean Corpuscular Hgb Conc. 33.6 g/dL (32.0-36.0); Mean Corpuscular Volume 94.2 fL (80.0-100.0); Monocytes # (auto) 0.4 uL; Monocytes % (auto) 6.2 % (0.0-12.0); Neutrophils # (auto) 3.9 uL; Neutrophils % (auto) 66.3 % (37.0-80.0); Platelet Count (auto) 210 10^3/uL (140-450); Red Blood Cells 4.71 10^6/uL (4.0-5.20); White Blood Cell 5.9 10^3/uL (4.4-10.8)
[2019-08-08 11:23] LABS: INR 1.22 (0.9-1.15); Partial Thromboplastin Time 28.2 sec (23.64-32.05)
[2019-08-08 11:24] LABS: Potassium 3.8 mmol/L (3.5-5.1)
[2019-08-08 11:31] LABS: Albumin 3.3 g/dL (3.4-5.0); Bilirubin, Total 0.5 mg/dL (0.2-1.0); Calcium 9.3 mg/dL (8.5-10.1); Magnesium 2.1 mg/dL (1.6-2.6); Total Protein 7.3 g/dL (6.4-8.2)
[2019-08-08 11:35] LABS: Urine Bacteria FEW /hpf (None Seen); Urine Blood Negative /uL (Negative); Urine Specific Gravity 1.026 (1.001-1.035); Urine WBC 123 /hpf (0 - 5); Urine WBC Clumps PRESENT /hpf (None Seen)
[2019-08-08] MEDS ORDERED: InsuLIN REG 1unit/0.01ml Soln (100units/ml) IV ONE (11:45)
[2019-08-08] MEDS ORDERED: cefTRIAXone 1GM/50ML D5W 50 ML IV ONE ×2 (11:45→14:00)
[2019-08-08] MEDS ORDERED: DEXTROSE (50%) 50ML SYRG IV PRN (14:00)
[2019-08-08] MEDS ORDERED: MORPHINE SULF INJ 2 MG/ML SYRINGE 1ML IV PRN (14:00)
[2019-08-08] MEDS ORDERED: ONDANSETRON HCL 4 MG/2 ML VIAL IV PRN (14:00)
[2019-08-08] MEDS ORDERED: NITROGLYCERIN 0.4 MG SL TAB SL PRN (14:00)
[2019-08-08] MEDS ORDERED: ACETAMINOPHEN 500 MG TAB PO PRN (14:00)
[2019-08-08] MEDS ORDERED: traMADol HCL 50 MG TAB PO PRN (14:00)
[2019-08-08] MEDS ORDERED: TEMAZEPAM 15 MG CAP PO PRN (14:00)
[2019-08-08] MEDS: SODIUM CHLORIDE 0.9% 1,000 ML IV SCH (14:09)
[2019-08-08 14:28] LABS: Amylase 53 U/L (25-115); Lipase 17 U/L (73-393)
--- NOTE | 2019-08-08 14:50 | NUR ---
Telemetry admit from ER [facility] admitted to Telemetry unit after SBAR received. Patient oriented to Anuradha Ugarte, RN primary RN, unit, room, bed, and unit policies regarding patient care and visiting hours. Patient now on continuous telemetry monitoring, tele box # 66 and telemetry reading on arrival to unit is SR 67. Patient placed on bedside oxygen, weighed by bedscale and encouraged to call if they need something. All questions and concerns addressed, patient verbalized understanding. Note:
[2019-08-08] MEDS ORDERED: LEVO150T10 PO (15:05)
[2019-08-08] MEDS ORDERED: ISOS60TA24 PO (15:05)
[2019-08-08] MEDS ORDERED: FURO1TAB33 PO (15:05)
[2019-08-08] MEDS ORDERED: APIX5TAB PO (15:06)
[2019-08-08] MEDS ORDERED: MECL12.554 PO (15:06)
[2019-08-08 15:42] VITALS: BP 137/75
[2019-08-08] MEDS: ACCU-CHEK COMFORT CURVE STRIP VI SCH ×3 (15:53→23:55)
[2019-08-08] MEDS: InsuLIN REG 1unit/0.01ml Soln (100units/ml) SC SCH ×3 (16:06→23:54)
[2019-08-08 16:28] VITALS: BP 137/75
--- NOTE | 2019-08-08 17:35 | NUR ---
Patient's daughter states she will have someone bring in patient's meds so the med rec can be completed.
--- NOTE | 2019-08-08 19:20 | NUR ---
Opening Shift Note Assumed care of patient, awake and alert x4. No S/S of distress/SOB or pain. Bed alarm is on. Call light is within reach, side rails up x2, bed is in lowest position. Instructed on POC and to call for assist PRN, will continue to monitor for changes Q1hr and PRN.
[2019-08-08] MEDS ORDERED: BACLOFEN 10 MG TAB PO SCH (22:00)
[2019-08-08] MEDS: APIXABAN 5 MG TAB PO SCH (22:15)
[2019-08-08] MEDS: FAMOTIDINE 20 MG TAB PO SCH (22:15)
[2019-08-08] MEDS: INSULIN LANTUS (GLARGINE) 1 /0.01ml (100units/ml) SC SCH (22:15)
[2019-08-08 22:17] VITALS: BP 114/51
[2019-08-09] MEDS: SODIUM CHLORIDE 0.9% 1,000 ML IV SCH ×2 (00:29→09:52)
[2019-08-09] MEDS: InsuLIN REG 1unit/0.01ml Soln (100units/ml) SC SCH ×3 (03:49→12:25)
[2019-08-09] MEDS: ACCU-CHEK COMFORT CURVE STRIP VI SCH ×3 (03:49→12:25)
--- NOTE | 2019-08-09 03:49 | NUR ---
Patient's blood sugar was 62 for 0400 accucheck. Patient stated she felt like her blood sugar was starting to bottom out and she knew this because her hands were starting to shake. This RN assessed it and found it to be lower than normal. Cranberry juice and shawn crackers were given, will reassess and continue to monitor.
--- NOTE | 2019-08-09 04:09 | NUR ---
Blood sugar reassessed Blood sugar level is now 84, patient is resting comfortably in bed. Call light is within reach, instructed patient to call if she feels her blood usgar is dropping again, she verbalized understanding. Will continue to monitor.
[2019-08-09 05:42] VITALS: BP 113/60
--- NOTE | 2019-08-09 07:28 | NUR ---
Endorsed care to Briana WEBER. Patient is resting in bed, no S/S of distress or pain. Call light is within reach.
[2019-08-09 08:58] VITALS: BP 112/57
[2019-08-09] MEDS ORDERED: cefTRIAXone 1GM/50ML D5W 50 ML IV SCH (09:00)
[2019-08-09] MEDS ORDERED: PRAVASTATIN SODIUM 20 MG TAB PO SCH (10:00)
[2019-08-09] MEDS ORDERED: FOLIC ACID 1 MG TAB PO SCH (10:00)
[2019-08-09] MEDS ORDERED: LISINOPRIL 5 MG TAB PO SCH (10:00)
[2019-08-09] MEDS ORDERED: PANTOPRAZOLE 40 MG TAB PO SCH (10:00)
[2019-08-09] MEDS ORDERED: Fenofibrate 145MG TAB PO SCH (10:00)
[2019-08-09] MEDS ORDERED: HYDROXYCHLOROQUINE SULFATE 200 MG TAB PO SCH (10:00)
--- NOTE | 2019-08-09 10:00 | NUR ---
PATIENT INSISTED ON ADMINISTERING HER OWN INSULIN [facility]ANT[facility] PATIENT VERBALIZED "I DO IT AT HOME AND IT FEELS BETTER WHEN I DO IT" PATIENT EDUCATED TO CLEAN SITE PRIOR TO ADMINISTRATION. PATIENT VERBALIZED UNDERSTANDING. WILL CONTINUE TO MONITOR
[2019-08-09] MEDS: APIXABAN 5 MG TAB PO SCH (10:15)
[2019-08-09] MEDS: FAMOTIDINE 20 MG TAB PO SCH (10:16)
[2019-08-09] MEDS: INSULIN LANTUS (GLARGINE) 1 /0.01ml (100units/ml) SC SCH (10:17)
[2019-08-09 13:35] VITALS: BP 112/57
--- NOTE | 2019-08-09 14:30 | NUR ---
DISCHARGE NOTE PATIENT ALERT AND ORIENTED X4 ALL DISCHARGE INSTRUCTIONS GIVEN ALL QUESTIONS AND CONCERNS ADDRESSED AND ANSWERED. PATIENT VERBALIZED UNDERSTANDING. IV REMOVED CATHETER INTACT PRESSURE DRESSING APPLIED PATIENT TOLERATED WELL. TELE BOX REMOVED CLEANED AND SENT TO ICU. FAITH HEALER NOTIFIED. PATIENT ASSISTED TO PERSONAL VEHICLE USING A WHEELCHAIR DENIES ALL PAIN SOB AND DISTRESS
--- NOTE | 2019-08-09 17:26 | NUR ---
D/C Planning Per consult for safety evaluation. Contact [facility] Ph:) Fax:( [phone]) faxed medical records for home health. Per Yarelis from [facility] patient was previously with [facility]. Contact [facility] Ph:) Fax:) faxed medical records. Per Laura from [facility] patient has been accepted and service to start within 48hrs upon d/c day. Followed up called to [facility] spoke to Yarelis regarding home health acceptance. Per [facility] authorization for home health is [id number]. Addendum: 08/09/19 at 1728 by VINOD ROGERS Amended: Links added.
== END 2019-08-09 14:30 | disposition home health service (06) | DRG 638 ==
LOC: ER 10:12 → TELE 10:13 → TELE-WESTW 14:48
PROVIDERS: ADMIT Internal Medicine; ATTEND Internal Medicine Nephrology
DX: E11.65 Type 2 diabetes mellitus with hyperglycemia (principal); E87.1 Hypo-osmolality and hyponatremia; N39.0 Urinary tract infection, site not specified; R00.1 Bradycardia, unspecified; E11.22 Type 2 diabetes mellitus with diabetic chronic kidney disease; I12.9 Hypertensive chronic kidney disease with stage 1 through stage 4 chronic kidney disease, or unspecified chronic kidney disease; E78.5 Hyperlipidemia, unspecified; N18.9 Chronic kidney disease, unspecified; K21.9 Gastro-esophageal reflux disease without esophagitis; K58.9 Irritable bowel syndrome, unspecified; H53.8 Other visual disturbances; Z91.14 Patient's other noncompliance with medication regimen; Z82.49 Family history of ischemic heart disease and other diseases of the circulatory system; Z86.711 Personal history of pulmonary embolism; Z87.442 Personal history of urinary calculi; Z90.710 Acquired absence of both cervix and uterus; Z90.49 Acquired absence of other specified parts of digestive tract
CPT/HCPCS: 36415; 71045; 80053; 81001; 82150; 82962; 83036; 83690; 83735; 85025; 85610; 85730; 87086; 93005; 96361; 96365; 96375; G0378; J0696; J1815

== ENCOUNTER → 2019-10-14 | Emergency (ER) | payer OTHER, MEDICAID ==
[~2019-10-14] VITALS: Ht 152.4 cm; Wt 59.0 kg
[~2019-10-14] MED LIST changes: +APIX5TAB PO; -BACL10TA PO; -CYAN100056 PO; +FURO1TAB33 PO; -IBUP600T27 PO; +ISOS60TA24 PO; +LEVO150T10 PO; +MECL12.554 PO; +ONDANSETRON HCL 4 MG/2 ML VIAL IV ONE; +SODIUM CHLORIDE 0.9% 1,000 ML IV ONE; -WARF7.5T20 PO; +cefTRIAXone 1GM/50ML D5W 50 ML IV ONE
[2019-10-14 16:09] LABS: Hematocrit 37.7 % (36.0-46.0); Hemoglobin 12.9 g/dL (12.2-16.2); Mean Corpuscular Hemoglobin 31.8 pg (28.0-32.0); Mean Corpuscular Hgb Conc. 34.2 g/dL (32.0-36.0); Platelet Count (auto) 250 10^3/uL (140-450); Red Blood Cells 4.05 10^6/uL (4.0-5.20); Red Cell Distribution Width 15.4 % (11.8-14.3)
[2019-10-14 16:17] LABS: Albumin 3.1 g/dL (3.4-5.0); Calcium 9.2 mg/dL (8.5-10.1); Potassium 3.3 mmol/L (3.5-5.1)
[2019-10-14 16:19] LABS: Basophils % (manual) 0 (0.0-2.0); Blast Cells 0; Metamyelocytes % 0; Myelocytes % 0; Promyelocytes % 0; Reactive Lymphocytes 0
[2019-10-14 16:20] LABS: Bilirubin, Direct 6.6 mg/dL (0-0.2); Bilirubin, Total 7.5 mg/dL (0.2-1.0); Total Protein 7.3 g/dL (6.4-8.2)
[2019-10-14 16:40] LABS: Band Neutrophils % (manual) 3; Eosinophils % (manual) 1 (0-7); Lymphocytes % (manual) 23 (10.0-50.0); Monocytes % (manual) 9 (0-12)
[2019-10-14 19:18] LABS: Urine Bacteria NONE SEEN /hpf (None Seen); Urine Blood 2+ /uL (Negative); Urine Mucus FEW (None Seen); Urine Specific Gravity 1.019 (1.001-1.035); Urine WBC 49 /hpf (0 - 5)
[2019-10-14 22:14] LABS: Amylase 67 U/L (25-115); Lipase 20 U/L (73-393)
[2019-10-15 03:41] VITALS: BP 95/44
== END | disposition home or self-care (01) ==
LOC: ER 15:18
DX: R17 Unspecified jaundice (principal); R10.9 Unspecified abdominal pain; R74.8 Abnormal levels of other serum enzymes; K86.89 Other specified diseases of pancreas; I12.9 Hypertensive chronic kidney disease with stage 1 through stage 4 chronic kidney disease, or unspecified chronic kidney disease; E11.22 Type 2 diabetes mellitus with diabetic chronic kidney disease; N18.9 Chronic kidney disease, unspecified; E78.5 Hyperlipidemia, unspecified; K21.9 Gastro-esophageal reflux disease without esophagitis; E07.9 Disorder of thyroid, unspecified; Z88.1 Allergy status to other antibiotic agents; Z88.8 Allergy status to other drugs, medicaments and biological substances; Z79.899 Other long term (current) drug therapy
CPT/HCPCS: 36415; 74176; 80053; 80076; 81001; 82140; 82150; 83690; 85007; 85027; 87086; 96365; 96375; J0696; J2405